=== PATIENT | male | born 1955 | race African-American/Black ===

== ENCOUNTER 2018-01-21 16:39 | Inpatient (IN) | payer SELFPAY, BC ==
[2018-01-21] MEDS: IV NORMAL SALINE 1000ML BAG 1,000 ML IV ×2 (17:50→23:59)
[2018-01-21] MEDS: ONDANSETRON PF 4 MG/2 ML VIAL. IV ×2 (17:50→18:41)
[2018-01-21] MEDS: fentaNYL PF VIAL 100 MCG/2 ML VIAL IV ×4 (17:51→22:43)
[2018-01-21 17:54] LABS: ADD MAN DIFF? NO
[2018-01-21 17:58] LABS: BASO # 0.1 x10^3/uL (0.0-0.2); BASO % 1 % (0-3); EOS # 0.1 x10^3/uL (0.0-0.7); EOS % 0 % (0-3); HEMATOCRIT 50.7 % (39.0-53.0); HEMOGLOBIN 16.2 g/dL (13.0-17.5); LYMPH # 2.1 x10^3/uL (1.0-4.8); LYMPH % 18 % (24-48); MEAN CORPUSCULAR HEMOGLOBIN 25 pg (25-35); MEAN CORPUSCULAR HGB CONC 32 g/dL (31-37); MEAN CORPUSCULAR VOLUME 78 fL (79-100); MONO # 0.5 x10^3/uL (0.0-1.1); MONO % 4 % (0-9); NEUT # 9.3 x10^3uL (1.8-7.7); NEUT % 78 % (31-73); PLATELET COUNT 205 x10^3/uL (140-400); RED BLOOD COUNT 6.52 x10^6/uL (4.30-5.70); RED CELL DISTRIBUTION WIDTH 16.1 % (11.5-14.5)
[2018-01-21 18:05] LABS: ANION GAP 9 (6-14); BLOOD UREA NITROGEN 14 mg/dL (8-26); BUN/CREATININE RATIO 12 (6-20); CALCIUM 9.2 mg/dL (8.5-10.1); CARBON DIOXIDE 29 mmol/L (21-32); CHLORIDE 101 mmol/L (98-107); CREATININE 1.2 mg/dL (0.7-1.3); GFR 74.5; GLUCOSE 108 mg/dL (70-99); POTASSIUM 3.6 mmol/L (3.5-5.1); SODIUM 139 mmol/L (136-145)
[2018-01-21 18:11] LABS: ALBUMIN 3.8 g/dL (3.4-5.0); ALBUMIN/GLOBULIN RATIO 0.9 (1.0-1.7); ALK PHOS 84 U/L (46-116); ALT (SGPT) 34 U/L (16-63); AST (SGOT) 22 U/L (15-37); LIPASE 41 U/L (73-393); TOTAL BILIRUBIN 0.7 mg/dL (0.2-1.0); TOTAL PROTEIN 8.2 g/dL (6.4-8.2)
[2018-01-21] MEDS ORDERED: CONTRAST GIVEN MC (18:15)
[2018-01-21 18:19] LABS: TROPONINI < 0.017 ng/mL (0.000-0.055)
[2018-01-21] MEDS: IOHEXOL 300 MG/ML 100ML VIAL. IV (18:19)
[2018-01-21 19:06] LABS: BILIRUBIN,URINE NEGATIVE (NEG); CLARITY,URINE CLEAR; COLOR,URINE YELLOW; GLUCOSE,URINE NEGATIVE (NEG); NITRITE,URINE NEGATIVE (NEG); PROTEIN,URINE NEGATIVE (NEG-TRACE); UROBILINOGEN,URINE 0.2 mg/dL (0.2 mg/dL)
[2018-01-21 19:08] LABS: AMPHETAMINE/METHAMPHETAMINE NEG (NEG); BARBITURATES NEG (NEG); BENZODIAZEPINES NEG (NEG); CANNABINOIDS POS (NEG); COCAINE NEG (NEG); ETHANOL, URINE NEG (NEG); METHADONE NEG (NEG); OPIATES NEG (NEG); PHENCYCLIDINE NEG (NEG)
[2018-01-21 19:21] LABS: BACTERIA,URINE 0 /HPF (0-FEW); HYALINE CASTS, URINE FEW /HPF; RBC,URINE 20-40 /HPF (0-2); SQUAMOUS EPITHELIAL CELL,UR FEW /LPF; YEAST,URINE PRESENT /HPF
[2018-01-21 19:37] LABS: LACTIC ACID 1.5 mmol/L (0.4-2.0)
[2018-01-21] MEDS ORDERED: hydrALAZINE 20 MG/ML VIAL. (22:38)
[2018-01-21] MEDS: hydrALAZINE 20 MG/ML VIAL. IVP (22:46)
[2018-01-21] MEDS ORDERED: ACETAMINOPHEN 325 MG TABLET. PO (23:00)
[2018-01-21] MEDS ORDERED: ONDANSETRON PF 4 MG/2 ML VIAL. IV (23:00)
[2018-01-22] MEDS: MORPHINE SULFATE 4 MG/ML DISP.SYRIN. IV ×3 (00:13→09:44)
[2018-01-22 05:08] LABS: ADD MAN DIFF? NO
[2018-01-22 05:15] LABS: BASO # 0.1 x10^3/uL (0.0-0.2); BASO % 1 % (0-3); EOS % 0 % (0-3); HEMATOCRIT 46.7 % (39.0-53.0); HEMOGLOBIN 15.1 g/dL (13.0-17.5); LYMPH % 19 % (24-48); MEAN CORPUSCULAR HEMOGLOBIN 25 pg (25-35); MEAN CORPUSCULAR HGB CONC 32 g/dL (31-37); MEAN CORPUSCULAR VOLUME 77 fL (79-100); MONO # 1.1 x10^3/uL (0.0-1.1); MONO % 10 % (0-9); NEUT # 7.4 x10^3uL (1.8-7.7); NEUT % 70 % (31-73); PLATELET COUNT 193 x10^3/uL (140-400); RED BLOOD COUNT 6.08 x10^6/uL (4.30-5.70); RED CELL DISTRIBUTION WIDTH 15.9 % (11.5-14.5); WHITE BLOOD COUNT 10.6 x10^3/uL (4.0-11.0)
[2018-01-22 05:52] LABS: ANION GAP 8 (6-14); BLOOD UREA NITROGEN 13 mg/dL (8-26); CALCIUM 8.9 mg/dL (8.5-10.1); CARBON DIOXIDE 27 mmol/L (21-32); CHLORIDE 104 mmol/L (98-107); GFR 91.9; GLUCOSE 118 mg/dL (70-99); POTASSIUM 3.6 mmol/L (3.5-5.1); SODIUM 139 mmol/L (136-145)
[2018-01-22] MEDS: IV NORMAL SALINE 1000ML BAG 1,000 ML IV ×2 (06:00→09:30)
[2018-01-22] MEDS: HYDROcodone/APAP 5/325MG 1 TAB TABLET PO ×2 (15:37→22:30)
[2018-01-22] MEDS: DICYCLOMINE HCL 10 MG CAPSULE PO ×2 (15:37→22:30)
[2018-01-22] MEDS: hydrALAZINE 20 MG/ML VIAL. IVP (18:53)
[2018-01-22] MEDS ORDERED: cloNIDine HCL 0.2 MG TABLET PO (23:45)
[2018-01-23] MEDS: MORPHINE SULFATE 4 MG/ML DISP.SYRIN. IV (00:11)
[2018-01-23] MEDS: amLODIPine BESYLATE 10 MG TABLET PO ×2 (00:11→09:38)
[2018-01-23 06:44] LABS: ADD MAN DIFF? NO
[2018-01-23 06:52] LABS: BASO % 1 % (0-3); EOS # 0.1 x10^3/uL (0.0-0.7); EOS % 1 % (0-3); HEMATOCRIT 46.6 % (39.0-53.0); HEMOGLOBIN 14.7 g/dL (13.0-17.5); LYMPH # 1.7 x10^3/uL (1.0-4.8); LYMPH % 21 % (24-48); MEAN CORPUSCULAR HEMOGLOBIN 24 pg (25-35); MEAN CORPUSCULAR HGB CONC 32 g/dL (31-37); MEAN CORPUSCULAR VOLUME 77 fL (79-100); MONO # 0.8 x10^3/uL (0.0-1.1); MONO % 9 % (0-9); NEUT # 5.9 x10^3uL (1.8-7.7); NEUT % 69 % (31-73); PLATELET COUNT 172 x10^3/uL (140-400); RED BLOOD COUNT 6.06 x10^6/uL (4.30-5.70); RED CELL DISTRIBUTION WIDTH 15.9 % (11.5-14.5); WHITE BLOOD COUNT 8.5 x10^3/uL (4.0-11.0)
[2018-01-23 06:58] LABS: ANION GAP 8 (6-14); BLOOD UREA NITROGEN 9 mg/dL (8-26); CALCIUM 8.7 mg/dL (8.5-10.1); CARBON DIOXIDE 27 mmol/L (21-32); CHLORIDE 102 mmol/L (98-107); CREATININE 0.9 mg/dL (0.7-1.3); GFR 103.8; GLUCOSE 99 mg/dL (70-99); POTASSIUM 3.4 mmol/L (3.5-5.1); SODIUM 137 mmol/L (136-145)
[2018-01-23] MEDS: DICYCLOMINE HCL 10 MG CAPSULE PO ×2 (09:37→14:01)
[2018-01-23] MEDS: HYDROcodone/APAP 5/325MG 1 TAB TABLET PO ×2 (09:39→14:01)
[2018-01-23] MEDS: POTASSIUM CHLORIDE 20 MEQ TABLET.ER. PO (14:00)
== END 2018-01-23 16:25 | disposition home or self-care (01) | DRG 392 ==
LOC: ER 16:39 → 4 NORTH 22:17
DX: K52.9 Noninfective gastroenteritis and colitis, unspecified (principal); E87.6 Hypokalemia; F12.90 Cannabis use, unspecified, uncomplicated; I10 Essential (primary) hypertension; I16.0 Hypertensive urgency; K21.9 Gastro-esophageal reflux disease without esophagitis; Z82.49 Family history of ischemic heart disease and other diseases of the circulatory system
CPT/HCPCS: 36415; 74177; 80048; 80053; 80307; 81001; 83605; 83690; 84484; 85025; 87086; 93005; 96361; 96374; 96375; 96376; 99285; 99285-25; J0360; J2270; J2405; J3010; J7030; Q9967

== ENCOUNTER 2020-03-20 11:42 | Inpatient (IN) | payer SELFPAY ==
[~2020-03-20] VITALS: Ht 190.5 cm; Wt 134.4 kg
[~2020-03-20 11:42] MED LIST: AMIO200T4 PO; APIX5TAB PO; ASPI-612 PO; CARV3.12 PO; CARV3.1210 PO; DILT180C29 PO; HYDR12.575 PO; HYDR12.58 PO; LISI-130 PO; LISI-334 PO
--- NOTE | 2020-03-20 12:13 | EKG ---
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
[2020-03-20 12:15] LABS: BASO # 0.1 x10^3/uL (0.0-0.2); BASO % 1 % (0-3); EOS # 0.1 x10^3/uL (0.0-0.7); EOS % 2 % (0-3); HEMATOCRIT 41.9 % (39.0-53.0); HEMOGLOBIN 13.4 g/dL (13.0-17.5); LYMPH # 1.5 x10^3/uL (1.0-4.8); LYMPH % 19 % (24-48); MEAN CORPUSCULAR HEMOGLOBIN 24 pg (25-35); MEAN CORPUSCULAR HGB CONC 32 g/dL (31-37); MEAN CORPUSCULAR VOLUME 74 fL (79-100); MONO # 0.7 x10^3/uL (0.0-1.1); MONO % 9 % (0-9); NEUT # 5.3 x10^3/uL (1.8-7.7); NEUT % 70 % (31-73); PLATELET COUNT 217 x10^3/uL (140-400); RED BLOOD COUNT 5.65 x10^6/uL (4.30-5.70); RED CELL DISTRIBUTION WIDTH 17.3 % (11.5-14.5); WHITE BLOOD COUNT 7.6 x10^3/uL (4.0-11.0)
[2020-03-20] MEDS ORDERED: DILTIAZEM HCL 125 MG in IV NORMAL SALINE 100ML 100 ML IV PRN (12:15)
[2020-03-20] MEDS ORDERED: dilTIAZem IV PUSH 25 MG/5 ML VIAL IVP ONE (12:15)
[2020-03-20 12:22] LABS: PROTHROMBIN TIME PATIENT 14.3 SEC (11.7-14.0)
--- NOTE | 2020-03-20 12:23 | RAD ---
Examination: PORTABLE CHEST 1V History: Reason: soa for 2 weeks / Spl. Instructions: / History: Comparison/Correlation: 04/29/2019 AP view of the chest Findings: Portable upright frontal view chest was obtained. Heart size is enlarged although this may in part be related to portable technique. No pneumothorax. Pulmonary vasculature is within upper limits of normal. No focal infiltrate. No definite effusion. Impression: No active disease. Electronically signed by: Tom John MD (03/20/2020 12:20 PM) [id number]
[2020-03-20 12:28] LABS: CALCIUM 8.3 mg/dL (8.5-10.1); CREATININE 1.2 mg/dL (0.7-1.3)
[2020-03-20 12:34] LABS: ALBUMIN 3.4 g/dL (3.4-5.0); ALBUMIN/GLOBULIN RATIO 0.9 (1.0-1.7); TOTAL BILIRUBIN 0.8 mg/dL (0.2-1.0); TOTAL PROTEIN 7.2 g/dL (6.4-8.2)
[2020-03-20 12:38] LABS: D-DIMER 0.54 ug/mlFEU (0.00-0.50)
[2020-03-20 12:42] LABS: FREE T4 1.3 ng/dL (0.76-1.46); THYROID STIM HORMONE (TSH) 0.945 uIU/mL (0.358-3.74)
--- NOTE | 2020-03-20 12:55 | PHYS DOC ---
Past Medical History Past Medical History: A-Fib, GERD, Hypertension Past Surgical History: Other Additional Past Surgical Histo: hernia Smoking Status: Never Smoker Alcohol Use: Heavy Drug Use: Marijuana General Adult EDM: Chief Complaint: RAPID HEART RATE HPI: HPI: Patient is a 64 year old male who presented to ER today for evaluation of feeling weak, trouble breathing, chill for about 2 weeks. Patient denies any fever or cough. Patient denies being exposed to anybody who tested positive for COVID-19. Patient has history of atrial fibrillation, he is on metoprolol and Eliquis. Patient feels like he is in atrial fibrillation again. Patient denies any headache, no chest pain, no abdominal pain, no nausea vomiting. Patient denies any recent travel or operation. Patient took his medication last night but has not taken his medication today yet. Review of Systems: Review of Systems: Constitutional: Denies fever, positive for chills. [] Eyes: Denies change in visual acuity. [] HENT: Denies nasal congestion or sore throat. [] Respiratory: Denies cough, positive for shortness of breath. [] Cardiovascular: Denies chest pain or edema. [] GI: Denies abdominal pain, nausea, vomiting, bloody stools or diarrhea. [] : Denies dysuria. [] Musculoskeletal: Denies back pain or joint pain. [] Integument: Denies rash. [] Neurologic: Denies headache, focal weakness or sensory changes. Positive for general weakness. Endocrine: Denies polyuria or polydipsia. [] Lymphatic: Denies swollen glands. [] Psychiatric: Denies depression or anxiety. [] Heart Score: Risk Factors: Risk Factors: DM, Current or recent (<one month) smoker, HTN, HLP, family history of CAD, obesity. Risk Scores: Score 0 - 3: 2.5% MACE over next 6 weeks - Discharge Home Score 4 - 6: 20.3% MACE over next 6 weeks - Admit for Clinical Observation Score 7 - 10: 72.7% MACE over next 6 weeks - Early Invasive Strategies Current Medications: Current Medications Medications (Trade) Dose Ordered Sig/Hernán Start Time Stop Time Status Last Admin Dose Admin Diltiazem HCl (Cardizem Iv Push) 20 mg 1X ONCE 03/20/20 12:15 03/20/20 12:16 DC 03/20/20 12:26 20 MG Diltiazem HCl 125 mg/Sodium Chloride 125 ml @ 5 mls/hr CONT PRN 03/20/20 12:15 03/20/20 12:28 5 MLS/HR Allergies: Allergies: Allergies Coded Allergies Type Severity Reaction Last Updated Verified No Known Drug Allergies 08/26/17 No Physical Exam: PE: Constitutional: Well developed, well nourished, no acute distress, non-toxic appearance. [] HENT: Normocephalic, atraumatic, bilateral external ears normal, oropharynx moist, no oral exudates, nose normal. [] Eyes: PERRLA, EOMI, conjunctiva normal, no discharge. [] Neck: Normal range of motion, no tenderness, supple, no stridor. [] Cardiovascular:TACHYCARDIA WITH IRREGULAR rhythm, no murmur [] Lungs & Thorax: Bilateral breath sounds clear to auscultation [] Abdomen: Bowel sounds normal, soft, no tenderness, no masses, no pulsatile masses. [] Skin: Warm, dry, no erythema, no rash. [] Back: No tenderness, no CVA tenderness. [] Extremities: No tenderness, no cyanosis, no clubbing, ROM intact, no edema. [] Neurologic: Alert and oriented X 3, normal motor function, normal sensory function, no focal deficits noted. [] Psychologic: Affect normal, judgement normal, mood normal. [] Current Patient Data: Labs: Laboratory Tests Test 03/20/20 11:54 White Blood Count 7.6 x10^3/uL (4.0-11.0) Red Blood Count 5.65 x10^6/uL (4.30-5.70) Hemoglobin 13.4 g/dL (13.0-17.5) Hematocrit 41.9 % (39.0-53.0) Mean Corpuscular Volume 74 fL (79-100) L Mean Corpuscular Hemoglobin 24 pg (25-35) L Mean Corpuscular Hemoglobin Concent 32 g/dL (31-37) Red Cell Distribution Width 17.3 % (11.5-14.5) H Platelet Count 217 x10^3/uL (140-400) Neutrophils (%) (Auto) 70 % (31-73) Lymphocytes (%) (Auto) 19 % (24-48) L Monocytes (%) (Auto) 9 % (0-9) Eosinophils (%) (Auto) 2 % (0-3) Basophils (%) (Auto) 1 % (0-3) Neutrophils # (Auto) 5.3 x10^3/uL (1.8-7.7) Lymphocytes # (Auto) 1.5 x10^3/uL (1.0-4.8) Monocytes # (Auto) 0.7 x10^3/uL (0.0-1.1) Eosinophils # (Auto) 0.1 x10^3/uL (0.0-0.7) Basophils # (Auto) 0.1 x10^3/uL (0.0-0.2) Prothrombin Time 14.3 SEC (11.7-14.0) H Prothrombin Time INR 1.2 (0.8-1.1) H Activated Partial Thromboplast Time 39 SEC (24-38) H Fibrinogen 417 mg/dL (200-440) D-Dimer (Zulema) 0.54 ug/mlFEU (0.00-0.50) H Sodium Level 140 mmol/L (136-145) Potassium Level 4.0 mmol/L (3.5-5.1) Chloride Level 102 mmol/L (98-107) Carbon Dioxide Level 25 mmol/L (21-32) Anion Gap 13 (6-14) Blood Urea Nitrogen 15 mg/dL (8-26) Creatinine 1.2 mg/dL (0.7-1.3) Estimated GFR (Cockcroft-Gault) 74.0 BUN/Creatinine Ratio 13 (6-20) Glucose Level 85 mg/dL (70-99) Lactic Acid Level 1.9 mmol/L (0.4-2.0) Calcium Level 8.3 mg/dL (8.5-10.1) L Total Bilirubin 0.8 mg/dL (0.2-1.0) Aspartate Amino Transferase (AST) 36 U/L (15-37) Alanine Aminotransferase (ALT) 28 U/L (16-63) Alkaline Phosphatase 97 U/L (46-116) Troponin I Quantitative 0.029 ng/mL (0.000-0.055) Total Protein 7.2 g/dL (6.4-8.2) Albumin 3.4 g/dL (3.4-5.0) Albumin/Globulin Ratio 0.9 (1.0-1.7) L Thyroid Stimulating Hormone (TSH) 0.945 uIU/mL (0.358-3.74) Free Thyroxine 1.30 ng/dL (0.76-1.46) Laboratory Tests 03/20/20 11:54 Laboratory Tests 03/20/20 11:54 Vital Signs: Vital Signs Date Time Temp Pulse Resp B/P (MAP) Pulse Ox O2 Delivery O2 Flow Rate FiO2 03/20/20 12:26 110 197/117 03/20/20 11:45 98.5 20 98 Room Air 98.5 EKG: EKG: EKG was done at 1149, heart rate 118 beats per minutes, A. fib with RVR, no ST segment elevation. EKG was read by this physician. Second EKG after the patient was given Cardizem, was done at 1236, heart rate of 80 beats per minutes, atrial fibrillation, right bundle branch block. Radiology/Procedures: Radiology/Procedures: [][facility] [address] [place], [place] [id number] IMAGING REPORT Signed PATIENT: REBECCA JAIN ACCOUNT: [id number] : 1955 LOCATION: ER AGE: 64 SEX: M EXAM STATUS: REG ER ORD. PHYSICIAN: KD GUAMAN DO REASON: soa for 2 weeks PROCEDURE: PORTABLE CHEST 1V Examination: PORTABLE CHEST 1V History: Reason: soa for 2 weeks / Spl. Instructions: / History: Comparison/Correlation: 04/29/2019 AP view of the chest Findings: Portable upright frontal view chest was obtained. Heart size is enlarged although this may in part be related to portable technique. No pneumothorax. Pulmonary vasculature is within upper limits of normal. No focal infiltrate. No definite effusion. Impression: No active disease. Electronically signed by: Tom Singer MD (03/20/2020 12:20 PM) [id number] DICTATED and SIGNED BY: TOM SINGER MD DATE: 03/20/20 1220 Course & Med Decision Making: Course & Med Decision Making Pertinent Labs and Imaging studies reviewed. (See chart for details) Patient is a 64-year-old male who was evaluated in the ER due to atrial fibr illation with RVR, his blood pressure was elevated. With symptoms of trouble breathing and chills, generalized weakness , he is suspected to have covic 19 infection as well. Patient was given IV Cardizem in the ED, his heart rate slowed down below 100 bpm, repeat EKG showed that he still in atrial fibrillation. Patient will be admitted to hospital for further evaluation and treatment. Dragon Disclaimer: Dragon Disclaimer: This electronic medical record was generated, in whole or in part, using a voice recognition dictation system. Departure Departure Impression: Primary Impression: Atrial fibrillation with RVR Additional Impressions: Hypertensive emergency Suspected 2018-nCoV infection Disposition: ADMITTED INPATIENT Admitting Physician: RAYNA (Dr. TINOCO) Condition: STABLE Referrals: NO PCP (PCP) KD GUAMAN DO March 20, 2020 12:55
--- NOTE | 2020-03-20 13:28 | EKG ---
[facility] [address] [place] [address] Test Date: 2020-03-20 Test Time: 12:36:06 Pat Name: REBECCA JAIN Department: Room: Gender: M Poiser Balance: [place] : 1955 Requested By: KD GUAMAN Order Number: [id number] Reading MD: Fazal Beckford MD Measurements Intervals [place] Rate: 80 P: CT: QRS: -34 QRSD: 126 T: 179 QT: 418 QTc: 486 Interpretive Statements ATRIAL FIBRILLATION NON-SPECIFIC ST/T CHANGES Electronically Signed On 03-21-2020 14:40:49 CDT by Fazal Beckford MD
[2020-03-20] MEDS ORDERED: ONDANSETRON PF 4 MG/2 ML VIAL. IV PRN ×2 (13:45→14:00)
--- NOTE | 2020-03-20 13:45 | PDOC2 ---
CARDIAC CONSULT DATE OF CONSULT Date of Consult DATE: 03/20/20 TIME: 13:37 REASON FOR CONSULT Reason for Consult: AFIB with RVR REFERRING PHYSICIAN Referring Physician: Dr. Sumner SOURCE Source: Chart review, Patient HISTORY OF PRESENT ILLNESS HISTORY OF PRESENT ILLNESS This is a 64 yo male, with a h/o PAFIB and cardiomyopathy, who presented secondary to weakness, chills, shortness of breath. Was noted in AFIB with RVR, which prompted this consult. Patient complains of shortness of breath and fatigue for the last 2 months. Has progressively worsened. Notice bilateral LE swelling over the last couple of day. Reports significant dyspnea with minimal exertion. No chest pain, palpitations, dizziness, diaphoresis, or n ausea/vomiting. Reports occasional palpitations. Reports compliance with medications. No recent fevers, illness, or sick contacts. PAST MEDICAL HISTORY Cardiovascular: AFIB, CHF GI: GERD PAST SURGICAL HISTORY Past Surgical History: Hernia Repair FAMILY HISTORY Family History: Hypertension SOCIAL HISTORY Smoke: Quit (2 years ago) ALCOHOL: other (2-3 [place] whisky drinks daily) Drugs: Marijuana Lives: with Family CURRENT MEDICATIONS CURRENT MEDICATIONS Current Medications Medications (Trade) Dose Ordered Sig/Hernán Route PRN Reason Start Time Stop Time Status Last Admin Dose Admin Diltiazem HCl (Cardizem Iv Push) 20 mg 1X ONCE IVP 03/20/20 12:15 03/20/20 12:16 DC 03/20/20 12:26 Diltiazem HCl 125 mg/Sodium Chloride 125 ml @ 5 mls/hr CONT PRN IV SEE I/O RECORD 03/20/20 12:15 03/20/20 12:28 ALLERGIES ALLERGIES: Coded Allergies: No Known Drug Allergies (Unverified , 08/26/17) ROS Review of System 14 point ROS conducted with pertinent positives noted above in HPI PHYSICAL EXAM General: Alert, Oriented X3, Cooperative, No acute distress HEENT: Atraumatic, Mucous membr. moist/pink Lungs: Other (diminished bases) Heart: Other (IRR; tele AFIB- rate 95) Abdomen: Soft, Other (obese) Extremities: Other (1+ bilateral LE edema ) Skin: No breakdown, No significant lesion Neuro: Normal speech, Sensation intact Psych/Mental Status: Mental status NL, Mood NL MUSCULOSKELETAL: Osteoarthritic changes both hands VITALS/I&O VITALS/I&O: Vital Signs Date Time Temp Pulse Resp B/P (MAP) Pulse Ox O2 Delivery O2 Flow Rate FiO2 03/20/20 12:54 82 16 165/103 (123) 100 Room Air 03/20/20 11:45 98.5 98.5 LABS Lab: Laboratory Tests Test 03/20/20 11:54 White Blood Count 7.6 x10^3/uL (4.0-11.0) Red Blood Count 5.65 x10^6/uL (4.30-5.70) Hemoglobin 13.4 g/dL (13.0-17.5) Hematocrit 41.9 % (39.0-53.0) Mean Corpuscular Volume 74 fL (79-100) L Mean Corpuscular Hemoglobin 24 pg (25-35) L Mean Corpuscular Hemoglobin Concent 32 g/dL (31-37) Red Cell Distribution Width 17.3 % (11.5-14.5) H Platelet Count 217 x10^3/uL (140-400) Neutrophils (%) (Auto) 70 % (31-73) Lymphocytes (%) (Auto) 19 % (24-48) L Monocytes (%) (Auto) 9 % (0-9) Eosinophils (%) (Auto) 2 % (0-3) Basophils (%) (Auto) 1 % (0-3) Neutrophils # (Auto) 5.3 x10^3/uL (1.8-7.7) Lymphocytes # (Auto) 1.5 x10^3/uL (1.0-4.8) Monocytes # (Auto) 0.7 x10^3/uL (0.0-1.1) Eosinophils # (Auto) 0.1 x10^3/uL (0.0-0.7) Basophils # (Auto) 0.1 x10^3/uL (0.0-0.2) Prothrombin Time 14.3 SEC (11.7-14.0) H Prothrombin Time INR 1.2 (0.8-1.1) H Activated Partial Thromboplast Time 39 SEC (24-38) H Fibrinogen 417 mg/dL (200-440) D-Dimer (Zulema) 0.54 ug/mlFEU (0.00-0.50) H Sodium Level 140 mmol/L (136-145) Potassium Level 4.0 mmol/L (3.5-5.1) Chloride Level 102 mmol/L (98-107) Carbon Dioxide Level 25 mmol/L (21-32) Anion Gap 13 (6-14) Blood Urea Nitrogen 15 mg/dL (8-26) Creatinine 1.2 mg/dL (0.7-1.3) Estimated GFR (Cockcroft-Gault) 74.0 BUN/Creatinine Ratio 13 (6-20) Glucose Level 85 mg/dL (70-99) Lactic Acid Level 1.9 mmol/L (0.4-2.0) Calcium Level 8.3 mg/dL (8.5-10.1) L Total Bilirubin 0.8 mg/dL (0.2-1.0) Aspartate Amino Transferase (AST) 36 U/L (15-37) Alanine Aminotransferase (ALT) 28 U/L (16-63) Alkaline Phosphatase 97 U/L (46-116) Troponin I Quantitative 0.029 ng/mL (0.000-0.055) TX-Gzm-[id number]-Type Natriuretic Peptide 1684 pg/mL (0-124) H Total Protein 7.2 g/dL (6.4-8.2) Albumin 3.4 g/dL (3.4-5.0) Albumin/Globulin Ratio 0.9 (1.0-1.7) L Thyroid Stimulating Hormone (TSH) 0.945 uIU/mL (0.358-3.74) Free Thyroxine 1.30 ng/dL (0.76-1.46) Laboratory Tests 03/20/20 11:54 Laboratory Tests 03/20/20 11:54 ECHOCARDIOGRAM ECHOCARDIOGRAM <Conclusion> The left ventricular systolic function is moderately decreased. EF 30-35%. There is moderate global hypokinesis. There is moderate to severe concentric left ventricular hypertrophy. Doppler and Color Flow revealed moderate aortic regurgitation. There is an echogenic structure on the atrial aspect of the septal tricuspid leaflet suggestive of vegetation versus mirror image artifact from the mitral valve. DATE: 05/01/19 1423 ASSESSMENT/PLAN ASSESSMENT/PLAN 1. PAFIB with RVR; s/p previous CV. Was on Amiodarone, but he ran out of meds and this was not continued. On metoprolol for rate control at home. Eliquis for stroke prophylaxis. Rate now controlled s/p Cardizem IVP 2. Acute on chronic systolic CHF with cardiomyopathy; LVEF 30-35% (05/12). 3. Accelerated hypertension; remains elevated. Previously on lisinopril, but not currently taking. 4. ETOH misuse; discussed limiting Recommendations Diuresis with monitoring of labs D/c Cardizem gtt Will resume metoprolol and increase for better rate control. Metoprolol tartrate not ideal with cardiomyopathy, but patient unable to afford Toprol XL as he does not have insurance Resume Eliquis 5mg BID for stroke prophylaxis. (Has been getting sample from [id number] who is RN; was taking 2.5mg BID) Resume lisinopril for BP control Echo to assess LV systolic function if COVID negative Outpatient ischemic evaluation Consider resuming antiarrhythmic once rate controlled. environmental services worker consult EPI MONTGOM[place] APRN March 20, 2020 13:45
--- NOTE | 2020-03-20 13:50 | PDOC1 ---
History and Physical Date of Admission Date of Admission DATE: 03/20/20 TIME: 13:49 Identification/Chief Complaint Chief Complaint SEEN IN ER WITH A FIB RVR , HTN 64 year old male who presented to ER today for evaluation of feeling weak, trouble breathing, chill for about 2 weeks. Patient denies any fever or cough. Patient denies being exposed to anybody who tested positive for COVID-19. Patient has history of atrial fibrillation, he is on metoprolol and Eliquis. Patient feels like he is in atrial fibrillation again. Patient denies any headache, no chest pain, no abdominal pain, no nausea vomiting. Patient denies any recent travel Past Medical History Past Medical History Past Medical History Past Medical History: A-Fib, GERD, Hypertension Past Surgical History: Other Additional Past Surgical Histo: hernia Smoking Status: Never Smoker Alcohol Use: Heavy Drug Use: Marijuana FHX OBESITY Cardiovascular: AFIB, CHF Pulmonary: COPD GI: GERD Heme/Onc: No pertinent hx Hepatobiliary: No pertinent hx Past Surgical History Past Surgical History: Hernia Repair Family History Family History: Hypertension Social History Smoke: 1 pack per day ALCOHOL: heavy Drugs: Marijuana Current Problem List Problem List Problems Medical Problems: (1) Suspected 2019-nCoV infection Status: Acute Current Medications Current Medications Current Medications Diltiazem HCl (Cardizem Iv Push) 20 mg 1X ONCE IVP Last administered on 03/20/20at 12:26; Start 03/20/20 at 12:15; Stop 03/20/20 at 12:16; Status DC Diltiazem HCl 125 mg/Sodium Chloride 125 ml @ 5 mls/hr CONT PRN IV SEE I/O RECORD Last administered on 03/20/20at 12:28; Start 03/20/20 at 12:15 Ondansetron HCl (Zofran) 4 mg PRN Q8HRS PRN IV NAUSEA/VOMITING; Start 03/20/20 at 13:45; Stop 03/21/20 at 13:44; Status UNV Active Scripts Active Lisinopril 40 Mg Tablet 40 Mg PO DAILY 30 Days Amiodarone Hcl 200 Mg Tablet 200 Mg PO DAILY 30 Days Diltiazem 24HR Cd (Diltiazem Hcl) 180 Mg Cap.er.24h 360 Mg PO DAILY 30 Days Eliquis (Apixaban) 5 Mg Tablet 5 Mg PO BID Hydrochlorothiazide Capsule (Hydrochlorothiazide) 12.5 Mg Capsule 12.5 Mg PO DAILY Aspirin Ec (Aspirin) 81 Mg Tablet. 81 Mg PO DAILYWBKFT Allergies Allergies: Coded Allergies: No Known Drug Allergies (Unverified , 08/26/17) ROS Review of System Review of Systems: Constitutional: Denies fever, positive for chills. [] Eyes: Denies change in visual acuity. [] HENT: Denies nasal congestion or sore throat. [] Respiratory: Denies cough, positive for shortness of breath. [] Cardiovascular: Denies chest pain or edema. [] GI: Denies abdominal pain, nausea, vomiting, bloody stools or diarrhea. [] : Denies dysuria. [] Musculoskeletal: Denies back pain or joint pain. [] Integument: Denies rash. [] Neurologic: Denies headache, focal weakness or sensory changes. Positive for general weakness. Endocrine: Denies polyuria or polydipsia. [] Lymphatic: Denies swollen glands. [] Psychiatric: Denies depression or anxiety. [] 14 PT ROS OTHERWISE NEG General: YES: Chills PSYCHOLOGICAL ROS: YES: Anxiety Respiratory: YES: Shortness of breath, SOB with excertion Cardiovascular: yes Palpitations Physical Exam Physical Exam Physical Exam: PE: Constitutional: Well developed, well nourished, no acute distress, non-toxic appearance. [] HENT: Normocephalic, atraumatic, bilateral external ears normal, oropharynx moist, no oral exudates, nose normal. [] Eyes: PERRLA, EOMI, conjunctiva normal, no discharge. [] Neck: Normal range of motion, no tenderness, supple, no stridor. [] Cardiovascular:TACHYCARDIA WITH IRREGULAR rhythm, no murmur [] Lungs & Thorax: Bilateral breath sounds clear to auscultation [] Abdomen: Bowel sounds normal, soft, no tenderness, no masses, no pulsatile masses. [] Skin: Warm, dry, no erythema, no rash. [] Back: No tenderness, no CVA tenderness. [] Extremities: No tenderness, no cyanosis, no clubbing, ROM intact, no edema. [] Neurologic: Alert and oriented X 3, normal motor function, normal sensory function, no focal deficits noted. [] Psychologic: Affect normal, judgement normal, mood normal. [] General: Alert, Oriented X3, Cooperative HEENT: Atraumatic Heart: irregularly irregular Abdomen: Normal bowel sounds, Soft Rectal Exam: not examined Extremities: No cyanosis Neuro: Normal speech, Cranial nerves 3-12 NL Psych/Mental Status: Mental status NL, Mood NL Vitals Vitals Vital Signs Date Time Temp Pulse Resp B/P (MAP) Pulse Ox O2 Delivery O2 Flow Rate FiO2 03/20/20 12:54 82 16 165/103 (123) 100 Room Air 03/20/20 11:45 98.5 98.5 Labs Labs Laboratory Tests Test 03/20/20 11:54 White Blood Count 7.6 x10^3/uL (4.0-11.0) Red Blood Count 5.65 x10^6/uL (4.30-5.70) Hemoglobin 13.4 g/dL (13.0-17.5) Hematocrit 41.9 % (39.0-53.0) Mean Corpuscular Volume 74 fL (79-100) Mean Corpuscular Hemoglobin 24 pg (25-35) Mean Corpuscular Hemoglobin Concent 32 g/dL (31-37) Red Cell Distribution Width 17.3 % (11.5-14.5) Platelet Count 217 x10^3/uL (140-400) Neutrophils (%) (Auto) 70 % (31-73) Lymphocytes (%) (Auto) 19 % (24-48) Monocytes (%) (Auto) 9 % (0-9) Eosinophils (%) (Auto) 2 % (0-3) Basophils (%) (Auto) 1 % (0-3) Neutrophils # (Auto) 5.3 x10^3/uL (1.8-7.7) Lymphocytes # (Auto) 1.5 x10^3/uL (1.0-4.8) Monocytes # (Auto) 0.7 x10^3/uL (0.0-1.1) Eosinophils # (Auto) 0.1 x10^3/uL (0.0-0.7) Basophils # (Auto) 0.1 x10^3/uL (0.0-0.2) Prothrombin Time 14.3 SEC (11.7-14.0) Prothromb Time International Ratio 1.2 (0.8-1.1) Activated Partial Thromboplast Time 39 SEC (24-38) Fibrinogen 417 mg/dL (200-440) D-Dimer (Zulema) 0.54 ug/mlFEU (0.00-0.50) Sodium Level 140 mmol/L (136-145) Potassium Level 4.0 mmol/L (3.5-5.1) Chloride Level 102 mmol/L (98-107) Carbon Dioxide Level 25 mmol/L (21-32) Anion Gap 13 (6-14) Blood Urea Nitrogen 15 mg/dL (8-26) Creatinine 1.2 mg/dL (0.7-1.3) Estimated GFR (Cockcroft-Gault) 74.0 BUN/Creatinine Ratio 13 (6-20) Glucose Level 85 mg/dL (70-99) Lactic Acid Level 1.9 mmol/L (0.4-2.0) Calcium Level 8.3 mg/dL (8.5-10.1) Total Bilirubin 0.8 mg/dL (0.2-1.0) Aspartate Amino Transf (AST/SGOT) 36 U/L (15-37) Alanine Aminotransferase (ALT/SGPT) 28 U/L (16-63) Alkaline Phosphatase 97 U/L (46-116) Troponin I Quantitative 0.029 ng/mL (0.000-0.055) EO-Iln-G-Type Natriuretic Peptide 1684 pg/mL (0-124) Total Protein 7.2 g/dL (6.4-8.2) Albumin 3.4 g/dL (3.4-5.0) Albumin/Globulin Ratio 0.9 (1.0-1.7) Thyroid Stimulating Hormone (TSH) 0.945 uIU/mL (0.358-3.74) Free Thyroxine 1.30 ng/dL (0.76-1.46) Laboratory Tests Test 03/20/20 11:54 White Blood Count 7.6 x10^3/uL (4.0-11.0) Red Blood Count 5.65 x10^6/uL (4.30-5.70) Hemoglobin 13.4 g/dL (13.0-17.5) Hematocrit 41.9 % (39.0-53.0) Mean Corpuscular Volume 74 fL (79-100) Mean Corpuscular Hemoglobin 24 pg (25-35) Mean Corpuscular Hemoglobin Concent 32 g/dL (31-37) Red Cell Distribution Width 17.3 % (11.5-14.5) Platelet Count 217 x10^3/uL (140-400) Neutrophils (%) (Auto) 70 % (31-73) Lymphocytes (%) (Auto) 19 % (24-48) Monocytes (%) (Auto) 9 % (0-9) Eosinophils (%) (Auto) 2 % (0-3) Basophils (%) (Auto) 1 % (0-3) Neutrophils # (Auto) 5.3 x10^3/uL (1.8-7.7) Lymphocytes # (Auto) 1.5 x10^3/uL (1.0-4.8) Monocytes # (Auto) 0.7 x10^3/uL (0.0-1.1) Eosinophils # (Auto) 0.1 x10^3/uL (0.0-0.7) Basophils # (Auto) 0.1 x10^3/uL (0.0-0.2) Prothrombin Time 14.3 SEC (11.7-14.0) Prothromb Time International Ratio 1.2 (0.8-1.1) Activated Partial Thromboplast Time 39 SEC (24-38) Fibrinogen 417 mg/dL (200-440) D-Dimer (Zulema) 0.54 ug/mlFEU (0.00-0.50) Sodium Level 140 mmol/L (136-145) Potassium Level 4.0 mmol/L (3.5-5.1) Chloride Level 102 mmol/L (98-107) Carbon Dioxide Level 25 mmol/L (21-32) Anion Gap 13 (6-14) Blood Urea Nitrogen 15 mg/dL (8-26) Creatinine 1.2 mg/dL (0.7-1.3) Estimated GFR (Cockcroft-Gault) 74.0 BUN/Creatinine Ratio 13 (6-20) Glucose Level 85 mg/dL (70-99) Lactic Acid Level 1.9 mmol/L (0.4-2.0) Calcium Level 8.3 mg/dL (8.5-10.1) Total Bilirubin 0.8 mg/dL (0.2-1.0) Aspartate Amino Transf (AST/SGOT) 36 U/L (15-37) Alanine Aminotransferase (ALT/SGPT) 28 U/L (16-63) Alkaline Phosphatase 97 U/L (46-116) Troponin I Quantitative 0.029 ng/mL (0.000-0.055) GX-Wxx-C-Type Natriuretic Peptide 1684 pg/mL (0-124) Total Protein 7.2 g/dL (6.4-8.2) Albumin 3.4 g/dL (3.4-5.0) Albumin/Globulin Ratio 0.9 (1.0-1.7) Thyroid Stimulating Hormone (TSH) 0.945 uIU/mL (0.358-3.74) Free Thyroxine 1.30 ng/dL (0.76-1.46) Images Images APPROVED REPORT EXAM: Two-dimensional and M-mode echocardiogram with Doppler and color Doppler. Other Information Quality : Average HR: 81bpm INDICATION Atrial Fibrillation 2D DIMENSIONS Left Atrium(2D) 5.2 (1.6-4.0cm) IVSd 1.8 (0.7-1.1cm) Aortic Root(2D) 3.3 (2.0-3.7cm) LVDd 6.7 (3.9-5.9cm) LVOT Diameter 2.2 (1.8-2.4cm) PWd 1.6 (0.7-1.1cm) LVDs 3.2 (2.5-4.0cm) FS (%) 51.9 % SV 186.6 ml LVEF(%) 82.0 (>50%) Aortic Valve AoV Peak Vincent. 172.4cm/s AoV VTI 23.2cm AO Peak GR. 11.9mmHg LVOT Peak Vincent. 90.9cm/s LVOT VTI 12.67cm AO Mean GR. 5mmHg FEDERICA (VMAX) 1.42cm2 FEDERICA (VTI) 2.10cm2 AI P 1/2 Time 815ms Mitral Valve MV E Peak Gr. 97mmHg Pulmonary Valve PV Peak Velocity 96.6cm/s PV Peak Grad. 4mmHg Tricuspid Valve TR P. Velocity 285cm/s RAP ESTIMATE 3mmHg TR Peak Gr. 39mmHg RVSP 42mmHg Pulmonary Vein S1 Velocity 25.7cm/s D2 Velocity 67.1cm/s PVa duration 102msec LEFT VENTRICLE The Left Ventricle is moderately dilated. There is moderate to severe concentric left ventricular hypertrophy. The left ventricular systolic function is moderately decreased. EF 30-35%. There is moderate global hypokinesis. Tissue Doppler imaging reveals moderate left ventricular diastolic dysfunction. RIGHT VENTRICLE The right ventricle is normal size. There is normal right ventricular wall thickness. Systolic function is borderline reduced. ATRIA The left atrium is moderately dilated. The right atrium is moderately dilated. The interatrial septum is intact with no evidence for an atrial septal defect or patent foramen ovale as noted on 2-D or Doppler imaging. AORTIC VALVE The aortic valve is calcified but opens well. Doppler and Color Flow revealed moderate aortic regurgitation. There is no significant aortic valvular stenosis. MITRAL VALVE The mitral valve is normal in structure and function. There is no evidence of mitral valve prolapse. There is no mitral valve stenosis. Doppler and Color-flow revealed trace to mild mitral regurgitation. TRICUSPID VALVE The tricuspid valve is grossly normal in structure and function. Doppler and Color Flow revealed trace to mild tricuspid regurgitation with an estimated PAP of 42 mmHg. There is an echogenic structure on the atrial aspect of the septal tricuspid leaflet suggestive of vegetation versus mirror image artifact from the mitral valve. There is no tricuspid valve stenosis. PULMONIC VALVE The pulmonic valve is not well visualized. Doppler and Color Flow revealed trace to mild pulmonic valvular regurgitation. There is no pulmonic valvular stenosis. GREAT VESSELS The aortic root is normal in size. The IVC is normal in size and collapses >50% with inspiration. PERICARDIAL EFFUSION There is no evidence of significant pericardial effusion. Critical Notification Critical Value: No <Conclusion> The left ventricular systolic function is moderately decreased. EF 30-35%. There is moderate global hypokinesis. There is moderate to severe concentric left ventricular hypertrophy. Doppler and Color Flow revealed moderate aortic regurgitation. There is an echogenic structure on the atrial aspect of the septal tricuspid leaflet suggestive of vegetation versus mirror image artifact from the mitral valve. Signed by : Rai Beckford, Electronically Approved : 05/01/2019 14:23:20 DICTATED and SIGNED BY: RAI BECKFORD MD DATE: 05/01/19 1423 STATUS: REG ER ORD. PHYSICIAN: KD GUAMAN DO REASON: soa for 2 weeks PROCEDURE: PORTABLE CHEST 1V Examination: PORTABLE CHEST 1V History: Reason: soa for 2 weeks / Spl. Instructions: / History: Comparison/Correlation: 04/29/2019 AP view of the chest Findings: Portable upright frontal view chest was obtained. Heart size is enlarged although this may in part be related to portable technique. No pneumothorax. Pulmonary vasculature is within upper limits of normal. No focal infiltrate. No definite effusion. Impression: No active disease. Electronically signed by: Tom John MD (03/20/2020 12:20 PM) [id number] VTE Prophylaxis Ordered VTE Prophylaxis Devices: Yes VTE Pharmacological Prophylaxi: Yes Assessment/Plan Assessment/Plan IMPRESSION 1. A FIB RVR 2. HYPERTENSIVE EMERGENCY 3. Subjective , chills, concern for covid-19 4. Acute on chronic systolic CHF with cardiomyopathy; LVEF 30-35% no thrombus noted in the left atrial appendage. HETAL 05/12 5. moderate aortic regurgitation. 6. MORBID OBESITY plan ADMIT IV CARDIZEM DRIP Consult cardiology consult pulmonary cont po eliquis covid 19 screen ICU BED SUKHDEV TINOCO MD March 20, 2020 13:50
[2020-03-20] MEDS: IV NORMAL SALINE 1000ML BAG 1,000 ML IV SCH (13:53)
[2020-03-20] MEDS ORDERED: guaiFENesin ORAL 200 MG/10 ML LIQUID. PO PRN (14:00)
[2020-03-20] MEDS ORDERED: SODIUM PHOSPHATES 19/7GM 133 ML ENEMA. PR PRN (14:00)
[2020-03-20] MEDS ORDERED: 0.9 % SODIUM CHLORIDE 10 ML DISP.SYRIN. IV PRN (14:00)
[2020-03-20] MEDS ORDERED: IPRATRPIUM/ALBUTEROL 0.5/2.5MG 3 ML NEBU. NEB SCH (14:00)
[2020-03-20] MEDS ORDERED: MAG HYDROX/ALUMINUM HYD/SIMETH 30 ML ORAL.SUSP PO PRN (14:00)
[2020-03-20] MEDS ORDERED: DOCUSATE SODIUM 100 MG CAPSULE. PO PRN (14:00)
[2020-03-20] MEDS ORDERED: ACETAMINOPHEN 325 MG TABLET. PO PRN (14:00)
[2020-03-20] MEDS ORDERED: LORazepam 0.5 MG TABLET PO PRN (14:00)
[2020-03-20 14:51] VITALS: BP 181/125
[2020-03-20] MEDS ORDERED: FUROSEMIDE 40 MG/4 ML VIAL. IVP ONE (15:30)
[2020-03-20] MEDS ORDERED: POTASSIUM CHLORIDE 20 MEQ TABLET.ER. PO ONE (15:30)
[2020-03-20] MEDS ORDERED: METO50TA6 PO (16:17)
[2020-03-20] MEDS ORDERED: ALBUTEROL SULFATE 2.5 MG/3 ML NEBU. NEB PRN (16:45)
[2020-03-20] MEDS: hydrALAZINE 20 MG/ML VIAL. IVP PRN ×2 (17:00→21:04)
[2020-03-20 19:00] VITALS: BP 176/111
[2020-03-20] MEDS ORDERED: METOPROLOL TART IMMED RELEASE 50 MG TABLET. PO ONE (19:00)
[2020-03-20] MEDS: APIXABAN 5 MG TABLET. PO SCH (20:49)
[2020-03-20] MEDS: METOPROLOL TART IMMED RELEASE 50 MG TABLET. PO SCH (20:50)
[2020-03-20] MEDS ORDERED: METOPROLOL TART IMMED RELEASE 50 MG TABLET. PO SCH (21:00)
[2020-03-20 22:00] VITALS: BP 166/94
[2020-03-20] MEDS ORDERED: LORazepam 1 MG TABLET PO PRN ×2 (22:45)
[2020-03-20] MEDS ORDERED: HALOPERIDOL LACTATE 5 MG/ML VIAL. IVP PRN (22:45)
[2020-03-20] MEDS ORDERED: diphenhydrAMINE 50 MG/ML VIAL IVP PRN (22:45)
[2020-03-20] MEDS ORDERED: cloNIDine HCL 0.1 MG TABLET PO PRN (22:45)
[2020-03-20 23:00] VITALS: BP 150/107
[2020-03-21 03:00] VITALS: BP 142/102
[2020-03-21] MEDS: IV NORMAL SALINE 1000ML BAG 1,000 ML IV SCH (03:13)
[2020-03-21 05:45] LABS: BASO # 0.1 x10^3/uL (0.0-0.2); BASO % 1 % (0-3); EOS # 0.1 x10^3/uL (0.0-0.7); EOS % 2 % (0-3); HEMATOCRIT 41.5 % (39.0-53.0); HEMOGLOBIN 13.4 g/dL (13.0-17.5); LYMPH # 1.6 x10^3/uL (1.0-4.8); LYMPH % 21 % (24-48); MEAN CORPUSCULAR HEMOGLOBIN 24 pg (25-35); MEAN CORPUSCULAR HGB CONC 32 g/dL (31-37); MEAN CORPUSCULAR VOLUME 74 fL (79-100); MONO # 0.8 x10^3/uL (0.0-1.1); MONO % 10 % (0-9); NEUT # 4.9 x10^3/uL (1.8-7.7); NEUT % 66 % (31-73); PLATELET COUNT 217 x10^3/uL (140-400); RED BLOOD COUNT 5.65 x10^6/uL (4.30-5.70); RED CELL DISTRIBUTION WIDTH 17.5 % (11.5-14.5); WHITE BLOOD COUNT 7.5 x10^3/uL (4.0-11.0)
[2020-03-21 06:07] LABS: CALCIUM 8.4 mg/dL (8.5-10.1); CREATININE 1.3 mg/dL (0.7-1.3); GFR 67.5
[2020-03-21 06:08] LABS: POTASSIUM 3.1 mmol/L (3.5-5.1)
[2020-03-21 07:00] VITALS: BP 137/110
[2020-03-21] MEDS: ASPIRIN ENTERIC COATED 81 MG TABLET.DR. PO SCH (08:33)
[2020-03-21] MEDS: hydroCHLOROthiazide 12.5 MG CAPSULE PO SCH (08:33)
[2020-03-21] MEDS: THIAMINE INJ 100 MG in IV DEXTROSE 5% 50 ML IV SCH (08:33)
[2020-03-21] MEDS: APIXABAN 5 MG TABLET. PO SCH ×2 (08:34→20:43)
[2020-03-21] MEDS: METOPROLOL TART IMMED RELEASE 50 MG TABLET. PO SCH ×3 (08:34→20:43)
[2020-03-21] MEDS: LISINOPRIL 20 MG TABLET PO SCH (08:34)
[2020-03-21] MEDS: SPIRONOLACTONE 25 MG TABLET PO SCH (08:34)
[2020-03-21] MEDS ORDERED: POTASSIUM CHLORIDE 20 MEQ TABLET.ER. PO ONE ×2 (09:00→11:00)
[2020-03-21] MEDS ORDERED: AMIODARONE HCL 200 MG TABLET. PO SCH (09:00)
[2020-03-21] MEDS ORDERED: ANTI-COAG MONITOR BY PHARMACY. MC PRN (09:15)
--- NOTE | 2020-03-21 09:38 | NUR ---
IP: Pt is COVID negative.
--- NOTE | 2020-03-21 10:10 | NUR ---
SS following for discharge planning. SS reviewed pt chart and discussed with RN, Matheus. Pt is from home with spouse and is currently on room air. Pt is COVID19 negative. SS will continue to follow for discharge planning.
[2020-03-21 11:00] VITALS: BP 156/99
[2020-03-21] MEDS ORDERED: FUROSEMIDE 20 MG/2 ML VIAL. IVP ONE (11:00)
--- NOTE | 2020-03-21 11:07 | PDOC ---
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 SALES MANAGER 03/21/20 1107: CARDIO Progress Notes Date and Time Date of Service 03/21/20 Time of Evaluation 1100 Subjective Subjective: No Chest Pain, Other (still SOA) Vitals Vitals Vital Signs Date Time Temp Pulse Resp B/P (MAP) Pulse Ox O2 Delivery O2 Flow Rate FiO2 03/21/20 08:34 96 142/102 03/21/20 08:00 Room Air 03/21/20 07:00 98.3 17 92 98.3 Weight Weight [ ] Input and Output Intake and Output Intake and Output 03/21/20 06:59 Intake Total 712 ml Output Total 2550 ml Balance -1838 ml Intake Oral 700 ml IV Total 12 ml Output Urine Total 2550 ml Laboratory Labs Laboratory Tests Test 03/20/20 11:54 03/20/20 12:18 03/20/20 17:00 03/21/20 05:20 White Blood Count 7.6 x10^3/uL (4.0-11.0) 7.5 x10^3/uL (4.0-11.0) Red Blood Count 5.65 x10^6/uL (4.30-5.70) 5.65 x10^6/uL (4.30-5.70) Hemoglobin 13.4 g/dL (13.0-17.5) 13.4 g/dL (13.0-17.5) Hematocrit 41.9 % (39.0-53.0) 41.5 % (39.0-53.0) Mean Corpuscular Volume 74 fL (79-100) 74 fL (79-100) Mean Corpuscular Hemoglobin 24 pg (25-35) 24 pg (25-35) Mean Corpuscular Hemoglobin Concent 32 g/dL (31-37) 32 g/dL (31-37) Red Cell Distribution Width 17.3 % (11.5-14.5) 17.5 % (11.5-14.5) Platelet Count 217 x10^3/uL (140-400) 217 x10^3/uL (140-400) Neutrophils (%) (Auto) 70 % (31-73) 66 % (31-73) Lymphocytes (%) (Auto) 19 % (24-48) 21 % (24-48) Monocytes (%) (Auto) 9 % (0-9) 10 % (0-9) Eosinophils (%) (Auto) 2 % (0-3) 2 % (0-3) Basophils (%) (Auto) 1 % (0-3) 1 % (0-3) Neutrophils # (Auto) 5.3 x10^3/uL (1.8-7.7) 4.9 x10^3/uL (1.8-7.7) Lymphocytes # (Auto) 1.5 x10^3/uL (1.0-4.8) 1.6 x10^3/uL (1.0-4.8) Monocytes # (Auto) 0.7 x10^3/uL (0.0-1.1) 0.8 x10^3/uL (0.0-1.1) Eosinophils # (Auto) 0.1 x10^3/uL (0.0-0.7) 0.1 x10^3/uL (0.0-0.7) Basophils # (Auto) 0.1 x10^3/uL (0.0-0.2) 0.1 x10^3/uL (0.0-0.2) Prothrombin Time 14.3 SEC (11.7-14.0) Prothromb Time International Ratio 1.2 (0.8-1.1) Activated Partial Thromboplast Time 39 SEC (24-38) Fibrinogen 417 mg/dL (200-440) D-Dimer (Zulema) 0.54 ug/mlFEU (0.00-0.50) Sodium Level 140 mmol/L (136-145) 140 mmol/L (136-145) Potassium Level 4.0 mmol/L (3.5-5.1) 3.1 mmol/L (3.5-5.1) Chloride Level 102 mmol/L (98-107) 102 mmol/L (98-107) Carbon Dioxide Level 25 mmol/L (21-32) 28 mmol/L (21-32) Anion Gap 13 (6-14) 10 (6-14) Blood Urea Nitrogen 15 mg/dL (8-26) 17 mg/dL (8-26) Creatinine 1.2 mg/dL (0.7-1.3) 1.3 mg/dL (0.7-1.3) Estimated GFR (Cockcroft-Gault) 74.0 67.5 BUN/Creatinine Ratio 13 (6-20) Glucose Level 85 mg/dL (70-99) 103 mg/dL (70-99) Lactic Acid Level 1.9 mmol/L (0.4-2.0) Calcium Level 8.3 mg/dL (8.5-10.1) 8.4 mg/dL (8.5-10.1) Total Bilirubin 0.8 mg/dL (0.2-1.0) Aspartate Amino Transf (AST/SGOT) 36 U/L (15-37) Alanine Aminotransferase (ALT/SGPT) 28 U/L (16-63) Alkaline Phosphatase 97 U/L (46-116) Troponin I Quantitative 0.029 ng/mL (0.000-0.055) < 0.017 ng/mL (0.000-0.055) VO-Xjz-L-Type Natriuretic Peptide 1684 pg/mL (0-124) Total Protein 7.2 g/dL (6.4-8.2) Albumin 3.4 g/dL (3.4-5.0) Albumin/Globulin Ratio 0.9 (1.0-1.7) Thyroid Stimulating Hormone (TSH) 0.945 uIU/mL (0.358-3.74) Free Thyroxine 1.30 ng/dL (0.76-1.46) Coronavirus (COVID-19)(PCR) Not detected (NOT DETECT.) Magnesium Level 1.7 mg/dL (1.8-2.4) Triglycerides Level 56 mg/dL (0-150) Cholesterol Level 132 mg/dL (0-200) LDL Cholesterol, Calculated 77 mg/dL (0-100) VLDL Cholesterol, Calculated 11 mg/dL (0-40) Non-HDL Cholesterol Calculated 88 mg/dL (0-129) HDL Cholesterol 44 mg/dL (40-60) Cholesterol/HDL Ratio 3.0 Physical Exam HEENT: Neck Supple W Full Motion Chest: Symmetric LUNGS: Other (diminished bases ) Heart: S1S2, irregularly irregular (AFIB rate 92) Abdomen: Soft N/T Extremities: Other (1+ bilateral LE edema) Neurology: alert, oriented, follow commands Assessment Assessment 1. PAFIB with RVR; remains in AFIB. Rate mostly controlled 2. Acute on chronic systolic CHF with cardiomyopathy; LVEF 30-35% (7/19). Secondary to combination of AFIB with RVR and uncontrolled blood pressure (ran out of lisinopril) 3. Hypertension; mildly elevated 4. Hypokalemia, hypomagnesemia 5. ETOH misuse Recommendations Replace electrolytes Needs additional diuresis. Monitor renal function Metoprolol for rate control Eliquis 5mg BID for stroke prophylaxis. Echo to assess LV systolic function Outpatient ischemic evaluation RAI HARRISON MD 03/21/20 1511: CARDIO Progress Notes Plan Plan Patient seen and examined. Agree with above nurse practitioner note. Continue rate control agents at this time. He is in a difficult situation due to lack of insurance. We will not be able to start him on long-acting metoprolol and Entresto. He may be able to find some low income subsidy plans that might be able to help him get his medications For now we will continue his Eliquis, metoprolol 3 times daily. Continue lisinopril and hydrochlorothiazide. Supportive care for now. Agree with outpatient ischemic evaluation. Awaiting current echocardiogram. EPI MONTGOMERY APRN March 21, 2020 11:07 RAI HARRISON MD March 21, 2020 15:11
[2020-03-21] MEDS ORDERED: MAGNESIUM SULFATE 2GM 50 ML IV ONE (11:15)
--- NOTE | 2020-03-21 11:20 | CONS ---
DATE OF CONSULTATION: PULMONARY CONSULTATION ATTENDING PHYSICIAN: Dr. Elizalde. REASON FOR CONSULTATION: Dyspnea. HISTORY OF PRESENT ILLNESS: The patient is a 64-year-old male who is obese with a BMI of 37.3. He has history of atrial fibrillation. He was admitted to the hospital with increasing shortness of breath and some mild lower extremity edema. He has no cough, no fever, no chills, no chest pains. He was noted to be in AFib with RVR. He has no COVID positive exposures. He had no fever. His chest x-ray showed mild cephalization of vessels. His AFib is under control, but still in atrial fibrillation. No headaches, no nausea, vomiting, or diarrhea. The patient has 40 years of tobacco use. Not on home oxygen. PAST MEDICAL HISTORY: History of atrial fibrillation, GERD, hypertension, possible COPD. PAST SURGICAL HISTORY: Including hernia repair. SOCIAL HISTORY: 40 years of tobacco use. Did marijuana. ALLERGIES: None. MEDICATIONS: Reviewed as listed in the MRAD. He is also on Eliquis. REVIEW OF SYSTEMS: Twelve-point system obtained. Pertinent positives discussed in my history of present illness, otherwise noncontributory. All systems that were negative were reviewed as well. FAMILY HISTORY: Noncontributory to lungs. PHYSICAL EXAMINATION: VITAL SIGNS: Reviewed. He is still in AFib with a rate is in the 90s, blood pressure stable, pulse ox 92% on room air. He is afebrile. HEENT: Sclerae nonicteric. NECK: Supple. LUNGS: With diminished breath sounds. CARDIOVASCULAR: With irregular rhythm. ABDOMEN: Soft. EXTREMITIES: With 1+ pitting edema. LABORATORY DATA: Reviewed. White cell count 7.5, hemoglobin 13.4 and platelets are 217. COVID-19 is negative. BUN 17, creatinine 1.3. ProBNP 1684. IMPRESSION: 1. Dyspnea related to atrial fibrillation with rapid ventricular response and mild congestive heart failure. 2. Abnormal chest x-ray with slightly prominent interstitial markings, likely related to congestive heart failure triggered by atrial fibrillation with rapid ventricular response. 3. 40 years of tobacco use, but no significant bronchospasm. 4. Underlying obesity. 5. COVID-19 negative. RECOMMENDATIONS: 1. We will continue monitoring for AFib per Cardiology. His rate is under control. He is on Eliquis. 2. Mild diuresis. 3. P.r.n. bronchodilators. 4. The patient could be transferred out of the ICU. 5. Weight loss is advised. 6. Follow chest x-ray p.r.n. 7. Discussed with career development counselor time 33 minutes. Chart reviewed, labs reviewed and x-ray reviewed as well. HOMER MELGAR MD DR: ELLIE/joey JOB#: [id number] / [id number]
[2020-03-21] MEDS ORDERED: FUROSEMIDE 40 MG/4 ML VIAL. IVP ONE (12:30)
--- NOTE | 2020-03-21 13:03 | PDOC ---
[employer] PROGRESS NOTE Chief Complaint Chief Complaint 1. A FIB RVR 2. HYPERTENSIVE EMERGENCY 3. Subjective , chills, concern for covid-19 4. Acute on chronic systolic CHF with cardiomyopathy; LVEF 30-35% no thrombus noted in the left atrial appendage. HETAL 05/12 5. moderate aortic regurgitation. 6. MORBID OBESITY Rule out COVID-19 History of Present Illness History of Present Illness 03/21/2020 Patient in His COVID test is negative We plan to transfer to CVC today Discussed with RN Chart reviewed Vitals/I&O Vitals/I&O: Vital Signs Date Time Temp Pulse Resp B/P (MAP) Pulse Ox O2 Delivery O2 Flow Rate FiO2 03/21/20 11:00 98.6 94 24 156/99 (118) 96 Room Air 98.6 I & O 03/20/20 03/20/20 03/21/20 15:00 23:00 07:00 Intake Total 712 ml Output Total 1450 ml 1100 ml Balance -738 ml -1100 ml Physical Exam General: Alert, Oriented X3, Cooperative, No acute distress Heart: Other (IRR; tele AFIB- rate 95) Lungs: Clear, Other Abdomen: Soft, Other (obese) Extremities: Other (1+ bilateral LE edema ) Skin: No breakdown, No significant lesion Labs Labs: Laboratory Tests Test 03/20/20 17:00 03/21/20 05:20 Troponin I Quantitative < 0.017 ng/mL (0.000-0.055) White Blood Count 7.5 x10^3/uL (4.0-11.0) Red Blood Count 5.65 x10^6/uL (4.30-5.70) Hemoglobin 13.4 g/dL (13.0-17.5) Hematocrit 41.5 % (39.0-53.0) Mean Corpuscular Volume 74 fL (79-100) Mean Corpuscular Hemoglobin 24 pg (25-35) Mean Corpuscular Hemoglobin Concent 32 g/dL (31-37) Red Cell Distribution Width 17.5 % (11.5-14.5) Platelet Count 217 x10^3/uL (140-400) Neutrophils (%) (Auto) 66 % (31-73) Lymphocytes (%) (Auto) 21 % (24-48) Monocytes (%) (Auto) 10 % (0-9) Eosinophils (%) (Auto) 2 % (0-3) Basophils (%) (Auto) 1 % (0-3) Neutrophils # (Auto) 4.9 x10^3/uL (1.8-7.7) Lymphocytes # (Auto) 1.6 x10^3/uL (1.0-4.8) Monocytes # (Auto) 0.8 x10^3/uL (0.0-1.1) Eosinophils # (Auto) 0.1 x10^3/uL (0.0-0.7) Basophils # (Auto) 0.1 x10^3/uL (0.0-0.2) Sodium Level 140 mmol/L (136-145) Potassium Level 3.1 mmol/L (3.5-5.1) Chloride Level 102 mmol/L (98-107) Carbon Dioxide Level 28 mmol/L (21-32) Anion Gap 10 (6-14) Blood Urea Nitrogen 17 mg/dL (8-26) Creatinine 1.3 mg/dL (0.7-1.3) Estimated GFR (Cockcroft-Gault) 67.5 Glucose Level 103 mg/dL (70-99) Calcium Level 8.4 mg/dL (8.5-10.1) Magnesium Level 1.7 mg/dL (1.8-2.4) Triglycerides Level 56 mg/dL (0-150) Cholesterol Level 132 mg/dL (0-200) LDL Cholesterol, Calculated 77 mg/dL (0-100) VLDL Cholesterol, Calculated 11 mg/dL (0-40) Non-HDL Cholesterol Calculated 88 mg/dL (0-129) HDL Cholesterol 44 mg/dL (40-60) Cholesterol/HDL Ratio 3.0 Assessment and Plan Assessmemt and Plan Problems Medical Problems: (1) Suspected 2019-nCoV infection Status: Acute 1. A FIB RVR 2. HYPERTENSIVE EMERGENCY 3. Subjective , chills, concern for covid-19 4. Acute on chronic systolic CHF with cardiomyopathy; LVEF 30-35% no thrombus noted in the left atrial appendage. HETAL 05/12 5. moderate aortic regurgitation. 6. MORBID OBESITY Plan Cardiac monitoring CVC bed Cardizem drip Cardiology pulmonary following Trend labs Home meds DVT prophylaxis Appreciate subspecialist Comment Review of Relevant I have reviewed the following items barrett (where applicable) has been applied. Medications: Current Medications Medications (Trade) Dose Ordered Sig/Hernán Route PRN Reason Start Time Stop Time Status Last Admin Dose Admin Hydralazine HCl (Apresoline Inj) 10 mg PRN Q4HRS PRN IVP ELEVATED BP, SEE COMMENTS 03/20/20 14:00 03/20/20 21:04 Apixaban (Eliquis) 5 mg BID PO 03/20/20 21:00 03/21/20 08:34 Aspirin (Ecotrin) 81 mg DAILYWBKFT PO 03/21/20 08:00 03/21/20 08:33 Hydrochlorothiazide (Microzide) 12.5 mg DAILY PO 03/21/20 09:00 03/21/20 08:33 Lisinopril (Prinivil) 40 mg DAILY PO 03/21/20 09:00 03/21/20 08:34 Furosemide (Lasix) 40 mg 1X ONCE IVP 03/20/20 15:30 03/20/20 15:31 DC 03/20/20 16:59 Potassium Chloride (Klor-Con) 20 meq 1X ONCE PO 03/20/20 15:30 03/20/20 15:31 DC 03/20/20 16:59 Metoprolol Tartrate (Lopressor) 50 mg TID PO 03/20/20 21:00 03/21/20 08:34 Spironolactone (Aldactone) 25 mg DAILY PO 03/21/20 09:00 03/21/20 08:34 Metoprolol Tartrate (Lopressor) 50 mg 1X ONCE PO 03/20/20 19:00 03/20/20 19:01 DC 03/20/20 19:02 Thiamine HCl 100 mg/Dextrose 51 ml @ 100 mls/hr DAILY IV 03/21/20 09:00 03/25/20 09:31 03/21/20 08:33 Potassium Chloride (Klor-Con) 40 meq 1X ONCE PO 03/21/20 09:00 03/21/20 09:01 DC 03/21/20 08:33 RL THAYER K III DO March 21, 2020 13:03
[2020-03-21] MEDS: amLODIPine BESYLATE 5 MG TABLET PO SCH (14:10)
[2020-03-21 15:00] VITALS: BP 150/98
[2020-03-21 18:32] VITALS: BP 149/83
[2020-03-21 22:47] VITALS: BP 162/89
[2020-03-22] VITALS (13 sets, daily range): BP systolic 138–163; BP diastolic 80–111
[2020-03-22] MEDS ORDERED: IV RINGERS,LACTATED 1000ML 1,000 ML IV SCH (08:11)
[2020-03-22] MEDS ORDERED: HYDROmorphone 2 MG/ML VIAL IV PRN (08:15)
[2020-03-22] MEDS ORDERED: PROCHLORPERAZINE 10 MG/2 ML VIAL. IV PRN (08:15)
[2020-03-22] MEDS ORDERED: LIDOCAINE 1% PF 2 ML VIAL. ID PRN (08:15)
[2020-03-22] MEDS ORDERED: MORPHINE SULFATE 2 MG/ML VIAL. IV PRN (08:15)
[2020-03-22] MEDS ORDERED: fentaNYL PF VIAL 100 MCG/2 ML VIAL IV PRN ×2 (08:15)
[2020-03-22] MEDS: amLODIPine BESYLATE 5 MG TABLET PO SCH (08:27)
[2020-03-22] MEDS: LISINOPRIL 20 MG TABLET PO SCH (08:27)
[2020-03-22] MEDS: METOPROLOL TART IMMED RELEASE 50 MG TABLET. PO SCH ×3 (08:27→20:53)
--- NOTE | 2020-03-22 08:42 | PDOC ---
[employer] PROGRESS NOTE Chief Complaint Chief Complaint 1. A FIB RVR 2. HYPERTENSIVE EMERGENCY 3. Subjective , chills, concern for covid-19 4. Acute on chronic systolic CHF with cardiomyopathy; LVEF 30-35% no thrombus noted in the left atrial appendage. HETAL 05/12 5. moderate aortic regurgitation. 6. MORBID OBESITY Rule out COVID-19 History of Present Illness History of Present Illness 03/22/2020 Patient seen and examined He is still in A. fib with RVR Going for cardioversion today Discussed with RN Chart reviewed 03/21/2020 Patient in His COVID test is negative We plan to transfer to CVC today Discussed with RN Chart reviewed Vitals/I&O Vitals/I&O: Vital Signs Date Time Temp Pulse Resp B/P (MAP) Pulse Ox O2 Delivery O2 Flow Rate FiO2 03/22/20 08:27 100 146/85 03/22/20 07:00 98.1 18 99 Room Air 98.1 I & O 03/21/20 03/21/20 03/22/20 15:00 23:00 07:00 Intake Total 300 ml 400 ml 800 ml Output Total 300 ml 400 ml Balance 0 ml 400 ml 400 ml Physical Exam General: Alert, Oriented X3, Cooperative, No acute distress Heart: Other (IRR; tele AFIB- rate 95) Lungs: Clear, Other Abdomen: Soft, Other (obese) Extremities: Other (1+ bilateral LE edema ) Skin: No breakdown, No significant lesion Assessment and Plan Assessmemt and Plan Problems Medical Problems: (1) Suspected 2019-nCoV infection Status: Acute 1. A FIB RVR 2. HYPERTENSIVE EMERGENCY 3. Subjective , chills, concern for covid-19 4. Acute on chronic systolic CHF with cardiomyopathy; LVEF 30-35% no thrombus noted in the left atrial appendage. HETAL 05/12 5. moderate aortic regurgitation. 6. MORBID OBESITY Plan Cardiac monitoring Cardioversion later today CVC bed Cardizem drip Cardiology pulmonary following Trend labs Home meds DVT prophylaxis Appreciate subspecialist Comment Review of Relevant I have reviewed the following items barrett (where applicable) has been applied. Medications: Current Medications Medications (Trade) Dose Ordered Sig/Hernán Route PRN Reason Start Time Stop Time Status Last Admin Dose Admin Hydrochlorothiazide (Microzide) 12.5 mg DAILY PO 03/21/20 09:00 03/21/20 08:33 Lisinopril (Prinivil) 40 mg DAILY PO 03/21/20 09:00 03/22/20 08:27 Spironolactone (Aldactone) 25 mg DAILY PO 03/21/20 09:00 03/21/20 08:34 Thiamine HCl 100 mg/Dextrose 51 ml @ 100 mls/hr DAILY IV 03/21/20 09:00 03/25/20 09:31 03/21/20 08:33 Potassium Chloride (Klor-Con) 40 meq 1X ONCE PO 03/21/20 09:00 03/21/20 09:01 DC 03/21/20 08:33 Magnesium Sulfate 50 ml @ 25 mls/hr 1X ONCE IV 03/21/20 11:15 03/21/20 13:14 DC 03/21/20 13:03 Furosemide (Lasix) 40 mg 1X ONCE IVP 03/21/20 12:30 03/21/20 12:31 DC 03/21/20 13:03 Amlodipine Besylate (Norvasc) 5 mg DAILY PO 03/21/20 14:00 03/22/20 08:27 RL THAYER III DO March 22, 2020 08:42
--- NOTE | 2020-03-22 10:31 | PDOC ---
PULMONARY PROGRESS NOTES Subjective no soa, on RA Vitals Vital Signs Date Time Temp Pulse Resp B/P (MAP) Pulse Ox O2 Delivery O2 Flow Rate FiO2 03/22/20 08:27 100 146/85 03/22/20 08:00 Room Air 03/22/20 07:00 98.1 18 99 98.1 ROS: No Chest Pain, No Increase Cough General: Alert, No acute distress Lungs: Clear Cardiovascular: S1 Abdomen: Soft Neuro Exam: Alert Extremities: Other (REACE EDEMA) Labs Laboratory Tests Test 03/20/20 11:54 03/20/20 12:18 03/20/20 17:00 03/21/20 05:20 White Blood Count 7.6 x10^3/uL (4.0-11.0) 7.5 x10^3/uL (4.0-11.0) Red Blood Count 5.65 x10^6/uL (4.30-5.70) 5.65 x10^6/uL (4.30-5.70) Hemoglobin 13.4 g/dL (13.0-17.5) 13.4 g/dL (13.0-17.5) Hematocrit 41.9 % (39.0-53.0) 41.5 % (39.0-53.0) Mean Corpuscular Volume 74 fL (79-100) 74 fL (79-100) Mean Corpuscular Hemoglobin 24 pg (25-35) 24 pg (25-35) Mean Corpuscular Hemoglobin Concent 32 g/dL (31-37) 32 g/dL (31-37) Red Cell Distribution Width 17.3 % (11.5-14.5) 17.5 % (11.5-14.5) Platelet Count 217 x10^3/uL (140-400) 217 x10^3/uL (140-400) Neutrophils (%) (Auto) 70 % (31-73) 66 % (31-73) Lymphocytes (%) (Auto) 19 % (24-48) 21 % (24-48) Monocytes (%) (Auto) 9 % (0-9) 10 % (0-9) Eosinophils (%) (Auto) 2 % (0-3) 2 % (0-3) Basophils (%) (Auto) 1 % (0-3) 1 % (0-3) Neutrophils # (Auto) 5.3 x10^3/uL (1.8-7.7) 4.9 x10^3/uL (1.8-7.7) Lymphocytes # (Auto) 1.5 x10^3/uL (1.0-4.8) 1.6 x10^3/uL (1.0-4.8) Monocytes # (Auto) 0.7 x10^3/uL (0.0-1.1) 0.8 x10^3/uL (0.0-1.1) Eosinophils # (Auto) 0.1 x10^3/uL (0.0-0.7) 0.1 x10^3/uL (0.0-0.7) Basophils # (Auto) 0.1 x10^3/uL (0.0-0.2) 0.1 x10^3/uL (0.0-0.2) Prothrombin Time 14.3 SEC (11.7-14.0) Prothromb Time International Ratio 1.2 (0.8-1.1) Activated Partial Thromboplast Time 39 SEC (24-38) Fibrinogen 417 mg/dL (200-440) D-Dimer (Zulema) 0.54 ug/mlFEU (0.00-0.50) Sodium Level 140 mmol/L (136-145) 140 mmol/L (136-145) Potassium Level 4.0 mmol/L (3.5-5.1) 3.1 mmol/L (3.5-5.1) Chloride Level 102 mmol/L (98-107) 102 mmol/L (98-107) Carbon Dioxide Level 25 mmol/L (21-32) 28 mmol/L (21-32) Anion Gap 13 (6-14) 10 (6-14) Blood Urea Nitrogen 15 mg/dL (8-26) 17 mg/dL (8-26) Creatinine 1.2 mg/dL (0.7-1.3) 1.3 mg/dL (0.7-1.3) Estimated GFR (Cockcroft-Gault) 74.0 67.5 BUN/Creatinine Ratio 13 (6-20) Glucose Level 85 mg/dL (70-99) 103 mg/dL (70-99) Lactic Acid Level 1.9 mmol/L (0.4-2.0) Calcium Level 8.3 mg/dL (8.5-10.1) 8.4 mg/dL (8.5-10.1) Total Bilirubin 0.8 mg/dL (0.2-1.0) Aspartate Amino Transf (AST/SGOT) 36 U/L (15-37) Alanine Aminotransferase (ALT/SGPT) 28 U/L (16-63) Alkaline Phosphatase 97 U/L (46-116) Troponin I Quantitative 0.029 ng/mL (0.000-0.055) < 0.017 ng/mL (0.000-0.055) XV-Lny-N-Type Natriuretic Peptide 1684 pg/mL (0-124) Total Protein 7.2 g/dL (6.4-8.2) Albumin 3.4 g/dL (3.4-5.0) Albumin/Globulin Ratio 0.9 (1.0-1.7) Thyroid Stimulating Hormone (TSH) 0.945 uIU/mL (0.358-3.74) Free Thyroxine 1.30 ng/dL (0.76-1.46) Coronavirus (COVID-19)(PCR) Not detected (NOT DETECT.) Magnesium Level 1.7 mg/dL (1.8-2.4) Triglycerides Level 56 mg/dL (0-150) Cholesterol Level 132 mg/dL (0-200) LDL Cholesterol, Calculated 77 mg/dL (0-100) VLDL Cholesterol, Calculated 11 mg/dL (0-40) Non-HDL Cholesterol Calculated 88 mg/dL (0-129) HDL Cholesterol 44 mg/dL (40-60) Cholesterol/HDL Ratio 3.0 Medications Active Scripts Medications Dose Route/Sig Max Daily Dose Days Date Category Metoprolol Tartrate 50 Mg Tablet 1 Tab PO BID 03/20/20 Reported Lisinopril 40 Mg Tablet 40 Mg PO DAILY 05/03/19 Rx Amiodarone Hcl 200 Mg Tablet 200 Mg PO DAILY 05/03/19 Rx Diltiazem 24HR Cd (Diltiazem Hcl) 180 Mg Cap.er.24h 360 Mg PO DAILY 30 05/03/19 Rx Eliquis (Apixaban) 5 Mg Tablet 5 Mg PO BID 05/01/19 Rx Hydrochlorothiazide Capsule (Hydrochlorothiazide) 12.5 Mg Capsule 12.5 Mg PO DAILY 05/01/19 Rx Aspirin Ec (Aspirin) 81 Mg Tablet. 81 Mg PO DAILYWBKFT 08/27/17 Rx Impression . 1. Dyspnea related to atrial fibrillation with rapid ventricular response and mild congestive heart failure. 2. Abnormal chest x-ray with slightly prominent interstitial markings, likely related to congestive heart failure triggered by atrial fibrillation with rapid ventricular response. 3. 40 years of tobacco use, but no significant bronchospasm. 4. Underlying obesity. 5. COVID-19 negative. Plan . 1. We will continue monitoring for AFib per Cardiology. His rate is under control. He is on Eliquis. 2. Mild diuresis PRN 3. P.r.n. bronchodilators. 5. Weight loss is advised. 6. Follow chest x-ray p.r.n. 7. Discussed with HOMER CELAYA MD March 22, 2020 10:31
[2020-03-22] MEDS ORDERED: PROPOFOL 10 MG/ML (20ML) VIAL. IV ONE (11:33)
[2020-03-22] MEDS ORDERED: LIDOCAINE 2% TOPICAL JELLY 30GM TUBE. TP ONE ×2 (11:53→13:00)
[2020-03-22] MEDS ORDERED: BENZOCAINE ONE 20% MUCOSAL SPRAY. (11:54)
[2020-03-22] MEDS ORDERED: LIDOCAINE 2% VISCOUS 15 ML SOLUTION. ONE (11:54)
[2020-03-22] MEDS ORDERED: AMIODARONE 150 MG in IV DEXTROSE 5% 100ML 100 ML IV ONE (12:30)
--- NOTE | 2020-03-22 12:59 | EKG ---
[facility] [address] [place] [address] Test Date: 2020-03-22 Test Time: 12:55:07 Pat Name: REBECCA JAIN Department: Room: 207 1 Gender: M Repeater Chief: : 1955 Requested By: RAI BECKFORD Order Number: [id number] Reading MD: Rai Beckford MD Measurements Intervals [place] Rate: 66 P: 60 AR: 204 QRS: -39 QRSD: 122 T: 180 QT: 432 QTc: 455 Interpretive Statements SINUS RHYTHM ATRIAL PREMATURE COMPLEX(ES) LVH Electronically Signed On 03-25-2020 12:17:30 CDT by Rai Beckford MD
[2020-03-22] MEDS ORDERED: LIDOCAINE 2% VISCOUS 15 ML SOLUTION. SWSW ONE (13:00)
[2020-03-22] MEDS: THIAMINE INJ 100 MG in IV DEXTROSE 5% 50 ML IV SCH (13:56)
[2020-03-22] MEDS: ASPIRIN ENTERIC COATED 81 MG TABLET.DR. PO SCH (13:56)
[2020-03-22] MEDS: hydroCHLOROthiazide 12.5 MG CAPSULE PO SCH (13:56)
[2020-03-22] MEDS: APIXABAN 5 MG TABLET. PO SCH ×2 (13:56→20:53)
[2020-03-22] MEDS: SPIRONOLACTONE 25 MG TABLET PO SCH (13:57)
--- NOTE | 2020-03-22 14:00 | NUR ---
SS following up with discharge planning. SS reviewed pt chart and discussed with pt RN. Pt is currently on room air. Pt had HETAL and cardioversion today. Discharge plan is to home when ready. SS will continue to follow for discharge planning.
[2020-03-23 03:30] VITALS: BP 175/95
[2020-03-23 07:00] VITALS: BP 168/95
[2020-03-23] MEDS: METOPROLOL TART IMMED RELEASE 50 MG TABLET. PO SCH (08:03)
[2020-03-23] MEDS: ASPIRIN ENTERIC COATED 81 MG TABLET.DR. PO SCH (08:03)
[2020-03-23] MEDS: SPIRONOLACTONE 25 MG TABLET PO SCH (08:03)
[2020-03-23] MEDS: APIXABAN 5 MG TABLET. PO SCH (08:04)
[2020-03-23] MEDS: amLODIPine BESYLATE 5 MG TABLET PO SCH (08:04)
[2020-03-23] MEDS: LISINOPRIL 20 MG TABLET PO SCH (08:04)
[2020-03-23] MEDS: hydroCHLOROthiazide 12.5 MG CAPSULE PO SCH (08:04)
[2020-03-23] MEDS: THIAMINE INJ 100 MG in IV DEXTROSE 5% 50 ML IV SCH (08:24)
--- NOTE | 2020-03-23 09:46 | PDOC ---
PULMONARY PROGRESS NOTES Subjective sob better, on RA, no cough, no cp Vitals Vital Signs Date Time Temp Pulse Resp B/P (MAP) Pulse Ox O2 Delivery O2 Flow Rate FiO2 03/23/20 08:04 82 168/95 03/23/20 08:00 Room Air 03/23/20 07:00 97.9 18 94 97.9 03/22/20 12:30 4 ROS: No Chest Pain, No Increase Cough General: Alert, No acute distress Lungs: Clear Cardiovascular: S1, S2 Abdomen: Soft Neuro Exam: Alert Extremities: Other (REACE EDEMA) Skin: Warm Medications Active Scripts Medications Dose Route/Sig Max Daily Dose Days Date Category Metoprolol Tartrate 50 Mg Tablet 1 Tab PO BID 03/20/20 Reported Lisinopril 40 Mg Tablet 40 Mg PO DAILY 05/03/19 Rx Amiodarone Hcl 200 Mg Tablet 200 Mg PO DAILY 05/03/19 Rx Diltiazem 24HR Cd (Diltiazem Hcl) 180 Mg Cap.er.24h 360 Mg PO DAILY 05/03/19 Rx Eliquis (Apixaban) 5 Mg Tablet 5 Mg PO BID 05/01/19 Rx Hydrochlorothiazide Capsule (Hydrochlorothiazide) 12.5 Mg Capsule 12.5 Mg PO DAILY 05/01/19 Rx Aspirin Ec (Aspirin) 81 Mg Tablet.dr 81 Mg PO DAILYWBKFT 08/27/17 Rx Impression . 1. Dyspnea related to atrial fibrillation with rapid ventricular response and mild congestive heart failure. now in sr 2. Abnormal chest x-ray with slightly prominent interstitial markings, likely related to congestive heart failure triggered by atrial fibrillation with rapid ventricular response. 3. 40 years of tobacco use, but no significant bronchospasm. 4. Underlying obesity. 5. COVID-19 negative. Plan . 1. We will continue monitoring for AFib per Cardiology. nsr, iuresis PRN 3. P.r.n. bronchodilators. 5. Weight loss is advised. 6. Follow chest x-ray p.r.n. 7. Discussed with RN, pt JAMMIE PONCE MD March 23, 2020 09:46
--- NOTE | 2020-03-23 10:28 | PDOC ---
Provider Note Provider Note No new issues. Staying in SR. Will repeat labs today. If labs ok, ok to DC. Scripts for meds given. Adria 30 day card given Discussed importance of f/u given severe cardiomyopathy Needs social work support for helping apply for medicaid Will f/u in the office in 8 weeks. Needs to have f/u with PCP in 4 weeks RAI HARRISON MD March 23, 2020 10:28
[2020-03-23 10:48] VITALS: BP 152/87
[2020-03-23 11:07] LABS: CALCIUM 8.6 mg/dL (8.5-10.1); CREATININE 1.6 mg/dL (0.7-1.3); GFR 53.1; POTASSIUM 3.7 mmol/L (3.5-5.1)
--- NOTE | 2020-03-23 12:46 | NUR ---
Discharge Note: PT DISCHARGED HOME WITH SELF CARE. PT LEFT FACILITY VIA PRIVATE VEHICLE BY HIMSELF AT 1245. PT STABLE AND ALERT UPON DISCHARGE. PT PIV REMOVED FROM L HAND WITHOUT COMPLICATIONS, BANDAGE APPLIED. PT EDUCATED ABOUT DISCHARGE INSTRUCTIONS TO FIND PCP PROVIDER AND FOLLOW-UP BMP LABS BEFORE TAKING DIRUETICS PRESCRIBED, PT GIVEN [facility] OF [facility] FOR PCP WITHOUT INSURANCE, AND PCP PROVIDERS IN THE AREA THAT DO NOT REQUIRE INSURANCE. PT EDUCATED ABOUT DISCHARGE INSTRUCTIONS, DISCHARGE MEDICATIONS, AND FOLLOW-UP CARE. PT VOICED NO CONCERNS AT THIS TIME, ALL QUESTIONS ANSWERED. PT LEFT WITH ALL PERSONAL BELONGINGS. REBECCA JAIN Discharge instructions and discharge home medications reviewed with Patient and a copy given. All questions have been answered and understanding verbalized.
--- NOTE | 2020-03-23 13:09 | CARD ---
MR#: [id number] Date of Study: 03/22/2020 Ordering Physician: SUKHDEV TINOCO, Referring Physician: SUKHDEV TINOCO, Tech: Nica Koch APPROVED REPORT EXAM: Transesophageal echocardiogram with color flow Doppler and Synchronized Cardioversion. INDICATION Atrial Fibrillation Reason For Test : Rule out cardiac source of emboli. PROCEDURE After obtaining informed consent, patient underwent transesophageal echo in the PACU. Type of Sedation : General Anesthesia Sedation was administered by Rio Lance. Sedation was achieved with Propofol 140mg intravenously. Transesophageal probe was inserted and advanced into esophagus by Von Beckford MD. The HETAL was performed without complications. Synchronized Cardioversion attempted: Successful Synchronized Cardioversion acheived with 200 Joules after 1 attempt(s). Rhythm following Synchronized Cardioversion: Normal Sinus Rhythm Throughout the procedure, the blood pressure, pulse oximetry, cardiac rhythm, and rate were monitored . The patient tolerated the procedure without adverse effects. Recovery from general anesthesia was une ventful and vital signs were stable. LEFT VENTRICLE The Left Ventricle is mildly dilated. There is moderate concentric left ventricular hypertrophy. The systolic function is severely impaired. EF 25% There is global hypokinesis of the left ventricle. No left ventricle thrombus noted on this study. RIGHT VENTRICLE The right ventricle is mildly dilated The right ventricle is mildly hypertrophied. The right ventricu lar systolic function is normal. ATRIA The left atrium is severely dilated. There is increased echogenicity in the LA consistent with slow f low. The right atrium is moderately dilated. The interatrial septum is intact with no evidence for an atrial septal defect or patent foramen ovale as noted on 2-D or Doppler imaging. There is no thrombu s noted in the left atrial appendage. AORTIC VALVE The aortic valve is calcified but opens well. Doppler and Color Flow revealed moderate aortic regurgi tation. There is no significant aortic valvular stenosis. MITRAL VALVE The mitral valve is normal in structure and function. There is no evidence of mitral valve prolapse. There is no mitral valve stenosis. Doppler and Color-flow revealed mild mitral regurgitation. TRICUSPID VALVE The tricuspid valve is normal in structure and function. Doppler and Color Flow revealed no tricuspid valve regurgitation noted. There is no tricuspid valve stenosis. PULMONIC VALVE The pulmonary valve is normal in structure and function. Doppler and Color Flow revealed no pulmonic valvular regurgitation. There is no pulmonic valvular stenosis. GREAT VESSELS The aortic root is normal in size. The IVC is normal in size and collapses >50% with inspiration. PERICARDIAL EFFUSION There is no evidence of significant pericardial effusion. There is no pleural effusion. Critical Notification Critical Value: No <Conclusion> The systolic function is severely impaired. EF 25% There is global hypokinesis of the left ventricle. Doppler and Color Flow revealed moderate aortic regurgitation. Successful CVN to SR. Signed by : Fazal Beckford, Electronically Approved : 03/23/2020 13:09:25
--- NOTE | 2020-03-23 13:52 | DS ---
DATE OF DISCHARGE: 03/23/2020 ADMISSION DIAGNOSIS: Atrial fibrillation with rapid ventricular response. DISCHARGE DIAGNOSIS: Resolving atrial fibrillation with rapid ventricular response (he underwent cardioversion). HOSPITAL COURSE: The patient is a pleasant 64-year-old male who presented with AFib with RVR and hypertension. He was admitted. He went for a cardioversion yesterday. Today, I saw him and examined. PHYSICAL EXAMINATION: HEART: Tones are normal. LUNGS: Clear. ABDOMEN: Soft. We plan to discharge. DISPOSITION: Home. ACTIVITY: As tolerated. DIET: Low sodium. MEDICATIONS: Please see MRAD. TOTAL TIME: 32 minutes. DARIL Shea THAYER DO DR: AURORA/joey JOB#: [id number] / [id number]
[2020-03-25] MEDS ORDERED: FOLIC ACID 1 MG TABLET. PO SCH (09:00)
[2020-03-26] MEDS ORDERED: THIAMINE 100 MG TABLET. PO SCH (09:00)
== END 2020-03-23 12:45 | disposition home or self-care (01) | DRG 308 ==
LOC: ER 11:42 → 1 WEST ICU 13:37 → 2 NORTH 03-21 16:27
PROVIDERS: ADMIT Family Medicine; ATTEND Family Medicine
PROC: B24BZZ4 Ultrasonography of Heart with Aorta, Transesophageal (ICD-10-PCS; 2020-03-22)
PROC: 5A2204Z Restoration of Cardiac Rhythm, Single (ICD-10-PCS; principal; 2020-03-22 11:30)
DX: I48.0 Paroxysmal atrial fibrillation (principal); I50.23 Acute on chronic systolic (congestive) heart failure; I16.1 Hypertensive emergency; I42.9 Cardiomyopathy, unspecified; I11.0 Hypertensive heart disease with heart failure; E66.01 Morbid (severe) obesity due to excess calories; E83.42 Hypomagnesemia; E87.6 Hypokalemia; K21.9 Gastro-esophageal reflux disease without esophagitis; F17.210 Nicotine dependence, cigarettes, uncomplicated; I35.1 Nonrheumatic aortic (valve) insufficiency; J44.9 Chronic obstructive pulmonary disease, unspecified; Z20.828 Contact with and (suspected) exposure to other viral communicable diseases; Z68.37 Body mass index [BMI] 37.0-37.9, adult; Z82.49 Family history of ischemic heart disease and other diseases of the circulatory system; Z79.899 Other long term (current) drug therapy
CPT/HCPCS: 36415; 71045; 80048; 80053; 80061; 83605; 83735; 83880; 84439; 84443; 84484; 85025; 85379; 85384; 85610; 85730; 87040; 92960; 93005; 93312; 93325; 94760; 96365; 96366; 96376; J0282; J0360; J1940; J2704; J3411; J3475; J3490; J7060; 99285-25; G0378; U0003-CS